=== PATIENT | male | born 1980 | race Caucasian/White ===

== ENCOUNTER 2019-07-24 19:47 | Emergency (ER) | payer SELFPAY ==
[2019-07-24 19:53] VITALS: BP 129/86; PULSE 93; TEMP 98.3; BMI 28.4
--- NOTE | 2019-07-24 21:27 | PDOC ---
History of Present Illness - General Chief Complaint: Alcohol intoxication Stated Complaint: DETOX Time Seen by Provider: 07/24/19 21:07 History Source: Patient Exam Limitations: No Limitations - History of Present Illness Initial Comments: 07/24/19 21:22 38 yo male pmh of testicular CA s/p resection 4 years ago and alcohol abuse presents to the ED for alcohol detox. Pt states his last drink was last night, has drank 30 beers every day for the last 2 years but only 8 today and began having tremors, anxiety and abdominal pain (CIWA 13). Pt requests transfer to detox, never been to detox in the past. Denies CP, SOB, CONCEPCION, F/C/N/V, no other medical complaints Past History - Past Medical History Allergies/Adverse Reactions: Allergies Allergy/AdvReac Type Severity Reaction Status Date / Time No Known Allergies Allergy Verified 07/24/19 19:53 - Psycho Social/Smoking Cessation Hx Smoking History: Current every day smoker Have you smoked in the past 12 months: Yes Number of Cigarettes Smoked Daily: 10 Information on smoking cessation initiated: No Hx Alcohol Use: Yes Drug/Substance Use Hx: Yes (cocaine) Review of Systems - Review of Systems Constitutional: No: Chills, Fever HEENTM: No: Eye Pain, Double Vision Respiratory: No: Shortness of Breath Cardiac (ROS): No: Chest Pain, Edema ABD/GI: Yes: Other (abdominal pain). No: Constipated, Diarrhea, Nausea, Vomiting : No: Dysuria, Discharge, Frequency, Flank Pain Integumentary: No: Bruising Neurological: No: Headache, Numbness, Paresthesia, Weakness, Unsteady Gait, Ataxia, Dizziness *Physical Exam - Vital Signs Last Vital Signs Temp Pulse Resp BP Pulse Ox 98.3 F 93 H 20 129/86 96 07/24/19 19:48 07/24/19 19:48 07/24/19 19:48 07/24/19 19:48 07/24/19 19:48 - Physical Exam General Appearance: Yes: Nourished, Appropriately Dressed. No: Apparent Distress HEENT: positive: EOMI, TIBURCIO Neck: positive: Supple. negative: Carotid bruit Respiratory/Chest: positive: Lungs Clear, Normal Breath Sounds. negative: Respiratory Distress, Accessory Muscle Use, Crackles, Rales, Rhonchi, Stridor, Wheezing Cardiovascular: positive: Regular Rhythm, Regular Rate, S1, S2. negative: Edema , JVD, Murmur Vascular Pulses: Dorsalis-Pedis (R): 4+, Doralis-Pedis (L): 4+ Gastrointestinal/Abdominal: positive: Flat, Soft. 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 negative: Sensory Deficit, Confused, Disoriented ED Treatment Course - LABORATORY CBC & Chemistry Diagram: 07/24/19 21:52 07/24/19 21:52 Medical Decision Making - Medical Decision Making 07/24/19 21:25 38 yo male pmh of testicular CA s/p resection 4 years ago and alcohol abuse presents to the ED for alcohol detox. Pt states his last drink was last night, has drank 30 beers every day for the last 2 years but only 8 today and began having tremors, anxiety and abdominal pain (CIWA 13). Pt requests transfer to detox, never been to detox in the past. Denies CP, SOB, CONCEPCION, F/C/N/V, no other medical complaints vitals wnl Will do basic labs and alcohol then transfer to [facility] for detox pt accepted to [facility] for Detox by Dr. Cisneros Pt will be transported to Detox via security Discharge - Discharge Information Problems reviewed: Yes Clinical Impression/Diagnosis: Alcohol withdrawal Condition: Stable Disposition: TRANSFER ACUTE CARE/OTHER HOSP - Admission No - Follow up/Referral - Patient Discharge Instructions Patient Printed Discharge Instructions: DI for Alcohol Abuse, DI for Drug or Alcohol Withdrawal Additional Instructions: Go straight to [facility] for detox. Thank you - Post Discharge Activity
[2019-07-24 21:59] LABS: BASO % 1.8 % (0-2.0); EOS % 3.1 % (0-4.5); HEMATOCRIT 41.4 % (35.4-49); HEMOGLOBIN 14.2 GM/dL (11.7-16.9); LYMPH % 29.8 % (8-40); MCHC 34.3 g/dl (32.0-35.9); MEAN CELL VOLUME 96.1 fl (80-96); MEAN PLT VOLUME 7.4 fl (7.5-11.1); NEUT % 57.3 % (42.8-82.8); PLATELET COUNT 229 K/MM3 (134-434); RBC 4.31 M/mm3 (4.00-5.60); RDW 12.7 % (11.9-15.9); WHITE BLOOD COUNT 5.9 K/mm3 (4.0-10.0)
--- NOTE | 2019-07-24 22:04 | PDOC ---
Attending Attestation - Resident Resident Name: Vasiliy Page - ED Attending Attestation I have performed the following: I have examined & evaluated the patient, The case was reviewed & discussed with the resident, I agree w/resident's findings & plan - HPI HPI: 07/24/19 21:59 Pt comes for alcohol detox. His family and friends brought him to the ER. Pt states that he was on a page and has had little else to eat for the past couple days. He has never been to this ER in the past. He otherwise is A+Ox3 and pleasant. - Physicial Exam PE: 07/24/19 22:04 Abd diffuse minimal tenderness with deep palpation. Afebrile clear lungs; [id number]; normal heart - Medical Decision Making 07/24/19 22:07 Pt has had basic labs and alcohol level drawn. He is sleeping comfortably. Pt was accepted to [facility] by Dr. Field and he will be sent over with security guards. 07/25/19 00:36 Labs normal; alcohol level 123
[2019-07-24 22:30] LABS: ALBUMIN 3.6 g/dl (3.4-5.0); BILIRUBIN,TOTAL 0.2 mg/dL (0.2-1); BLOOD UREA NITROGEN 6.2 mg/dL (7-18); CALCIUM 8.7 mg/dL (8.5-10.1); CREATININE 0.9 mg/dL (0.55-1.3); POTASSIUM 3.9 mmol/L (3.5-5.1); TOT PROT 6.7 g/dl (6.4-8.2)
== END 2019-07-24 22:34 | disposition short-term general hospital (02) ==
LOC: JER 19:47
DX: F10.230 Alcohol dependence with withdrawal, uncomplicated (principal); F17.210 Nicotine dependence, cigarettes, uncomplicated; Y90.6 Blood alcohol level of 120-199 mg/100 ml
CPT/HCPCS: 36415; 80053; 80307; 85025; 99283-25

== ENCOUNTER 2019-07-24 22:57 | Inpatient (IN) | payer SELFPAY ==
[2019-07-24 23:17] VITALS: BMI 29.6
--- NOTE | 2019-07-24 23:40 | HP ---
CIWA Score Nausea/Vomitin Muscle Tremors: 4-Moderate,w/Arms Extend Anxiety: 3 Agitation: 2 Paroxysmal Sweats: 2 Orientation: 0-Oriented Tacttile Disturbances: 2-Mild Itch/Numbness/Burn Auditory Disturbances: 2-Mild Harshness/Frighten Visual Disturbances: 2-Mild Sensitivity Headache: 2-Mild CIWA-Ar Total Score: 22 - Admission Criteria OASAS Guidelines: Admission for Medically Managed Detox: Requires at least one of the followin. CIWA greater than 12 2. Seizures within the past 24 hours 3. Delirium tremens within the past 24 hours 4. Hallucinations within the past 24 hours 5. Acute intervention needed for co occurring medical disorder 6. Acute intervention needed for co occurring psychiatric disorder 7. Severe withdrawal that cannot be handled at a lower level of care (continued vomiting, continued diarrhea, abnormal vital signs) requiring intravenous medication and/or fluids 8. Admitting History and Physical - Smoking History Smoking history: Current every day smoker Have you smoked in the past 12 months: Yes Aproximately how many cigarettes per day: 10 - Alcohol/Substance Use Hx Alcohol Use: Yes Admission ROS S - HPI Chief Complaint: DEPENDENT ON ETOH ONLY HE WAS SENT FROM THE ER FOR ADMISSION TO THE DETOX UNIT Allergies/Adverse Reactions: Allergies Allergy/AdvReac Type Severity Reaction Status Date / Time No Known Allergies Allergy Verified 07/24/19 23:06 History of Present Illness: THE PT. IS REQUESTING ADMISSION TO THE DETOX UNIT AND CAME FOR MEDICAL CLEARANCE. Exam Limitations: No Limitations - Ebola screening Have you traveled outside of the country in the last 21 days: No (N) Have you had contact with anyone from an Ebola affected area: No Have you been sick,other than usual withdrawal symptoms: No Do you have a fever: No - Review of Systems Constitutional: See HPI, Malaise, Weakness EENT: reports: See HPI Respiratory: reports: See HPI Cardiac: reports: See HPI GI: reports: See HPI, Nausea, Vomiting, Abdominal cramping : reports: No Symptoms Reported, See HPI Musculoskeletal: reports: See HPI, Muscle Pain, Muscle Weakness Integumentary: reports: See HPI, Flushing, Sweating Neuro: reports: See HPI, Headache, Tremors, Weakness Endocrine: reports: See HPI Hematology: reports: See HPI Psychiatric: reports: Judgement Intact, Orientated x3, Anxious, Depressed Patient History - Patient Medical History Hx Seizures: No Hx Human Immunodeficiency Virus (HIV): No Hx Hepatitis C: No Hx Depression: Yes (and ANXIETY DISORDER) Hx Suicide Attempt: No Hx Bipolar Disorder: No Hx Schizophrenia: No - Patient Surgical History Past Surgical History: Yes Other Surgical History: SURGERY FOR CA. OF THE STOMACH AND COLON IN 2015 - Smoking Cessation Smoking history: Current every day smoker Have you smoked in the past 12 months: Yes Aproximately how many cigarettes per day: 10 Hx Chewing Tobacco Use: No Initiated information on smoking cessation: Yes 'Breaking Loose' booklet given: 07/24/19 - Substance & Tx. History Hx Alcohol Use: Yes Hx Substance Use: No Substance Use Type: Alcohol Hx Substance Use Treatment: No - Substances abused Alcohol Substance route: Oral Frequency: Daily Amount used: 30 beers Age of first use: 13 Date of last use: 07/24/19 Admission Physical Exam BHS - Vital Signs Vital Signs: Vital Signs - 24 hr 07/24/19 23:04 Temperature 97.2 F L Pulse Rate 92 H Respiratory 16 Rate Blood Pressure 108/77 - Physical General Appearance: Yes: No Apparent Distress, Nourished, Appropriately Dressed , Alcohol on Breath, Tremorous, Sweating, Anxious HEENTM: Yes: Hearing grossly Normal, Normocephalic, Normal Voice, TIBURCIO, Pharynx Normal Respiratory: Yes: Chest Non-Tender, Lungs Clear, Normal Breath Sounds, No Respiratory Distress, No Accessory Muscle Use Neck: Yes: No masses,lesions,Nodules, Supple, Trachea in good position Breast: Yes: Breast Exam Deferred, Axillae without masses Cardiology: Yes: Regular Rhythm, S1, S2, Tachycardia Abdominal: Yes: Normal Bowel Sounds, Non Tender, Soft, Protuberent Back: Yes: Normal Inspection Musculoskeletal: Yes: full range of Motion, Gait Steady, Pelvis Stable, Muscle Pain, Muscle weakness Extremities: Yes: Normal Capillary Refill, Normal Range of Motion, Non-Tender, Tremors Neurological: Yes: industrial engineering analyst II-XII NML intact, Fully Oriented, Alert, Motor Strength 5/5, Normal Response, Depressed Affect Integumentary: Yes: Normal Color, Warm, Moist, Rash Lymphatic: Yes: Within Normal Limits - Addiitonal Findings: PATCHY AREAS OF ERYTHEMA ON THE ABD. WALL - HAVING FOR ABOUT 2 MONTHS - Diagnostic (1) EtOH dependence Current Visit: Yes Status: Chronic Qualifiers: Complication of substance-induced condition: uncomplicated (2) Nicotine dependence Current Visit: Yes Status: Chronic Qualifiers: Nicotine product type: cigarettes Substance use status: uncomplicated Qualified Code(s): F17.210 - Nicotine dependence, cigarettes, uncomplicated (3) Anxiety and depression Current Visit: Yes Status: Acute (4) Skin rash Current Visit: Yes Status: Chronic Cleared for Admission S - Detox or Rehab [facility] Level of Care: Medically Managed Detox Regimen/Protocol: Valium Breathalyzer - Breathalyzer Breathalyzer: 0.062 Inpatient Rehab Admission - Rehab Decision to Admit Inpatient rehab admission?: No
[2019-07-24] MEDS ORDERED: MELATONIN 5 MG TABLETS PO PRN (23:50)
[2019-07-24] MEDS ORDERED: NICOTINE POLACRILEX 2 MG GUM BUC PRN (23:50)
[2019-07-24] MEDS ORDERED: MAGNESIUM HYDROX 2400MG/30ML ORAL SUSPENSION 30 ML CUP PO PRN (23:50)
[2019-07-24] MEDS ORDERED: hydrOXYzine PAMOATE 25 MG CAPSULE (FP) PO PRN (23:50)
[2019-07-24] MEDS ORDERED: ACETAMINOPHEN 325 MG TABLET (FP) PO PRN ×2 (23:50)
[2019-07-24] MEDS ORDERED: MAG HYDROX/AL HYDROX/SIMETH 30 ML UNIT-DOSE CUP PO PRN (23:50)
[2019-07-24] MEDS ORDERED: BISMUTH SUBSALICYLATE 524 MG/30 ML UD PO PRN (23:50)
[2019-07-24] MEDS ORDERED: MAGNESIUM CITRATE 300 ML BOTTLE PO PRN (23:50)
[2019-07-24] MEDS ORDERED: METHOCARBAMOL 500 MG TABLET PO PRN (23:50)
[2019-07-24] MEDS ORDERED: IBUPROFEN 400 MG TABLET (FP) PO PRN (23:50)
[2019-07-24] MEDS ORDERED: MENTHOL/PHENOL 1 EACH UD MM PRN (23:50)
[2019-07-24] MEDS ORDERED: diazePAM 5 MG TABLET PO ONE (23:50)
[2019-07-25] MEDS: diazePAM 5 MG TABLET PO SCH ×4 (01:38→21:14)
[2019-07-25] MEDS: PRENATAL VITAMINS W/ FOLIC ACID TABLET (FP) PO SCH (10:09)
[2019-07-25] MEDS: NICOTINE 14 MG/24 HOURS TOPICAL PATCH TD SCH (10:09)
[2019-07-25 12:13] LABS: HEMATOCRIT 43.1 % (35.4-49); HEMOGLOBIN 14.7 GM/dL (11.7-16.9); MCH 33.1 pg (25.7-33.7); MCHC 34.2 g/dl (32.0-35.9); MEAN CELL VOLUME 96.9 fl (80-96); MEAN PLT VOLUME 8.3 fl (7.5-11.1); PLATELET COUNT 194 K/MM3 (134-434); RBC 4.45 M/mm3 (4.00-5.60); RDW 12.8 % (11.9-15.9); WHITE BLOOD COUNT 4.6 K/mm3 (4.0-10.0)
[2019-07-25 12:25] LABS: ALBUMIN 3.7 g/dl (3.4-5.0); BILIRUBIN,TOTAL 0.6 mg/dL (0.2-1); BLOOD UREA NITROGEN 6.6 mg/dL (7-18); CALCIUM 8.8 mg/dL (8.5-10.1); CREATININE 0.9 mg/dL (0.55-1.3); POTASSIUM 3.9 mmol/L (3.5-5.1); TOT PROT 6.9 g/dl (6.4-8.2)
--- NOTE | 2019-07-25 14:03 | CONSULT ---
[facility] Psychiatric Consult - Data Date of interview: 07/25/19 Admission source: [facility] Identifying data: Patient is a 38 year old [place] male, father of two, unemployed, domiciled (resides with sister), and supports himself with his savings. This is patient's first admission to detox at [facility]. Patient admitted to for alcohol dependence. Substance Abuse History: - Smoking Cessation. Smoking history: Current every day smoker. Have you smoked in the past 12 months: Yes. Aproximately how many cigarettes per day: 10. Hx Chewing Tobacco Use: No. Initiated information on smoking cessation: Yes. 'Breaking Loose' booklet given: 07/24/19. - Substance & Tx. History. Hx Alcohol Use: Yes. Hx Substance Use: No. Substance Use Type : Alcohol. Hx Substance Use Treatment: No. - Substances abused. Alcohol. Substance route: Oral. Frequency: Daily. Amount used: 30 beers. Age of first use: 13. Date of last use: 07/24/19 Medical History: Surgery for cancer of the stomach and coloin in 2014. Psychiatric History: Patient's first psychiatric contact was while in rehab at [facility]. He reports being diagnosed with depression and anxiety and was treated with Celexa. After discharge he continued psychiatric treatment at a clinic in [address] [place] [address]. Mr. Sepulveda most recently received psychiatric care by Dr. Anderson in the area of [facility] in 2018. States that he continued to receive treatment with celexa 20mg which improved his mood and anxiety. Subsequently his treatment was discontinued after his removed him from the insurance which then caused him to relapse. At present patient reports feeling sad and anxious. Patient denies history of psychiatric hospitalization and suicide attempt. Physical/Sexual Abuse/Trauma History: denies. Mental Status Exam - Mental Status Exam Alert and Oriented to: Time, Place, Person Cognitive Function: Good Patient Appearance: Well Groomed Mood: Sad Affect: Mood Congruent Patient Behavior: Appropriate, Cooperative Speech Pattern: Appropriate Voice Loudness: Normal Thought Process: Goal Oriented Thought Disorder: Not Present Hallucinations: Denies Suicidal Ideation: Denies Homicidal Ideation: Denies Insight/Judgement: Poor Sleep: Poorly Appetite: Fair Muscle strength/Tone: Normal Gait/Station: Normal Psychiatric Findings - Problem List ([place] 1, 2,3) (1) Nicotine dependence Current Visit: Yes Status: Chronic Qualifiers: Nicotine product type: cigarettes Substance use status: uncomplicated Qualified Code(s): F17.210 - Nicotine dependence, cigarettes, uncomplicated (2) Alcohol withdrawal Current Visit: Yes Status: Acute (3) Alcohol-induced mood disorder Current Visit: Yes Status: Acute (4) Alcohol induced sleep disorders Current Visit: Yes Status: Acute - Initial Treatment Plan Initial Treatment Plan: Psychoeducation provided. Detoxification in progress. Will order Celexa 10mg + Belsomra 10mg HS. Benefits and side effects discussed. Verbal consent given.
--- NOTE | 2019-07-25 15:30 | PN ---
S CIWA - CIWA Score Nausea/Vomitin-Mild Nausea/No Vomiting Muscle Tremors: 4-Moderate,w/Arms Extend Anxiety: 3 Agitation: 3 Paroxysmal Sweats: 3 Orientation: 0-Oriented Tacttile Disturbances: 0-None Auditory Disturbances: 0-None Visual Disturbances: 0-None Headache: 0-None Present CIWA-Ar Total Score: 14 S Progress Note (SOAP) Subjective: Tremor, feels sick from withdrawing sxs, interrupted sleep Objective: 07/25/19 15:29 Last Vital Signs Temp Pulse Resp BP Pulse Ox 98.1 F 81 18 126/78 07/25/19 13:39 07/25/19 13:39 07/25/19 13:39 07/25/19 13:39 Laboratory Tests 07/25/19 07/25/19 07/25/19 07:35 07:35 07:35 WBC 4.6 RBC 4.45 Hgb 14.7 Hct 43.1 MCV 96.9 H MCH 33.1 MCHC 34.2 RDW 12.8 Plt Count 194 MPV 8.3 D Sodium 139 Potassium 3.9 Chloride 105 Carbon Dioxide 30 Anion Gap 4 L BUN 6.6 L Creatinine 0.9 Est GFR (CKD-EPI)AfAm 124.26 Est GFR (CKD-EPI)NonAf 107.21 Random Glucose 85 Calcium 8.8 Total Bilirubin 0.6 AST 28 ALT 35 Alkaline Phosphatase 102 Total Protein 6.9 Albumin 3.7 RPR Titer Nonreactive Labs reviewed Assessment: 07/25/19 15:29 Withdrawal sxs Plan: Continue detox Encouraged PO water intake
[2019-07-25] MEDS: THIAMINE HCL 100 MG TABLET (FP) PO SCH (21:15)
[2019-07-25] MEDS: SUVOREXANT 10 MG TABLET PO PRN (21:16)
[2019-07-26] MEDS: diazePAM 5 MG TABLET PO SCH ×2 (05:50→17:41)
--- NOTE | 2019-07-26 09:58 | PN ---
S CIWA - CIWA Score Nausea/Vomitin-No Nausea/No Vomiting Muscle Tremors: 2 Anxiety: 2 Agitation: 2 Paroxysmal Sweats: 2 Orientation: 0-Oriented Tacttile Disturbances: 0-None Auditory Disturbances: 0-None Visual Disturbances: 0-None Headache: 0-None Present CIWA-Ar Total Score: 8 BHS Progress Note (SOAP) Subjective: sweats feeling better Objective: 07/26/19 09:55 Vital Signs Temperature 98.2 F 07/26/19 09:17 Pulse Rate 70 07/26/19 09:17 Respiratory Rate 18 07/26/19 09:17 Blood Pressure 123/67 07/26/19 09:17 O2 Sat by Pulse Oximetry (%) Laboratory Tests 07/25/19 07/25/19 07/25/19 07:35 07:35 07:35 WBC 4.6 RBC 4.45 Hgb 14.7 Hct 43.1 MCV 96.9 H MCH 33.1 MCHC 34.2 RDW 12.8 Plt Count 194 MPV 8.3 D Sodium 139 Potassium 3.9 Chloride 105 Carbon Dioxide 30 Anion Gap 4 L BUN 6.6 L Creatinine 0.9 Est GFR (CKD-EPI)AfAm 124.26 Est GFR (CKD-EPI)NonAf 107.21 Random Glucose 85 Calcium 8.8 Total Bilirubin 0.6 AST 28 ALT 35 Alkaline Phosphatase 102 Total Protein 6.9 Albumin 3.7 RPR Titer Nonreactive aaox3 ambulating no acute distress Assessment: 07/26/19 09:57 mild withdrawals Plan: continue detox d/c in am
[2019-07-26] MEDS: NICOTINE 14 MG/24 HOURS TOPICAL PATCH TD SCH (10:03)
[2019-07-26] MEDS: PRENATAL VITAMINS W/ FOLIC ACID TABLET (FP) PO SCH (10:03)
[2019-07-26] MEDS: CITALOPRAM HYDROBROMIDE 10 MG TABLET (FP) PO SCH (10:04)
[2019-07-26] MEDS: diazePAM 5 MG TABLET PO PRN ×3 (10:06→20:14)
--- NOTE | 2019-07-26 16:01 | EKG ---
Test Reason : Blood Pressure : / mmHG Vent. Rate : 069 BPM Atrial Rate : 069 BPM P-R Int : 146 ms QRS Dur : 092 ms QT Int : 410 ms P-R-T Axes : 042 076 051 degrees QTc Int : 439 ms NORMAL SINUS RHYTHM NORMAL ECG NO PREVIOUS ECGS AVAILABLE Confirmed by KEKE RANDLE MD ([id number]) on 07/26/2019 4:01:19 PM Referred By: Confirmed By:KEKE RANDLE MD
[2019-07-26] MEDS: THIAMINE HCL 100 MG TABLET (FP) PO SCH (22:03)
[2019-07-26] MEDS: SUVOREXANT 10 MG TABLET PO PRN (22:04)
[2019-07-27] MEDS ORDERED: diazePAM 5 MG TABLET PO ONE (06:00)
--- NOTE | 2019-07-27 09:14 | DS ---
[facility] Detox Discharge Summary Admission Date: 07/24/19 Discharge Date: 07/27/19 - History Present History: Alcohol Dependence - Physical Exam Results Vital Signs: Vital Signs Temperature 97.2 F L 07/27/19 05:45 Pulse Rate 84 07/27/19 05:45 Respiratory Rate 18 07/27/19 05:45 Blood Pressure 133/82 07/27/19 05:45 O2 Sat by Pulse Oximetry (%) Pertinent Admission Physical Exam Findings: pt arrived in withdrawals Vital Signs Temperature 97.2 F L 07/27/19 05:45 Pulse Rate 84 07/27/19 05:45 Respiratory Rate 18 07/27/19 05:45 Blood Pressure 133/82 07/27/19 05:45 O2 Sat by Pulse Oximetry (%) Laboratory Tests 07/25/19 07/25/19 07/25/19 07:35 07:35 07:35 WBC 4.6 RBC 4.45 Hgb 14.7 Hct 43.1 MCV 96.9 H MCH 33.1 MCHC 34.2 RDW 12.8 Plt Count 194 MPV 8.3 D Sodium 139 Potassium 3.9 Chloride 105 Carbon Dioxide 30 Anion Gap 4 L BUN 6.6 L Creatinine 0.9 Est GFR (CKD-EPI)AfAm 124.26 Est GFR (CKD-EPI)NonAf 107.21 Random Glucose 85 Calcium 8.8 Total Bilirubin 0.6 AST 28 ALT 35 Alkaline Phosphatase 102 Total Protein 6.9 Albumin 3.7 RPR Titer Nonreactive pt is aaox3 ambulating no acute distress - Treatment Hospital Course: Detox Protocol Followed, Detoxed Safely, Responded well, Discharged Condition Good, Rehab Referral Accepted Patient has Accepted a Rehab Referral to: pt referred to [place] counseling - Medication Discharge Medications: Ambulatory Orders NK [No Known Home Medication] 07/24/19 - Diagnosis (1) Alcohol induced sleep disorders Current Visit: Yes Status: Acute (2) Alcohol-induced mood disorder Current Visit: Yes Status: Acute (3) Anxiety and depression Current Visit: Yes Status: Acute (4) EtOH dependence Current Visit: Yes Status: Chronic Qualifiers: Substance use status: in withdrawal Complication of substance-induced condition: uncomplicated Qualified Code(s): F10.230 - Alcohol dependence with withdrawal, uncomplicated (5) Nicotine dependence Current Visit: Yes Status: Chronic Qualifiers: Nicotine product type: cigarettes Substance use status: uncomplicated Qualified Code(s): F17.210 - Nicotine dependence, cigarettes, uncomplicated (6) Skin rash Current Visit: Yes Status: Chronic - AMA Did Patient Leave Against Medical Advice: No
[2019-07-27 09:21] VITALS: BP 131/85; PULSE 65; TEMP 97.1
[2019-07-27] MEDS: CITALOPRAM HYDROBROMIDE 10 MG TABLET (FP) PO SCH (09:37)
[2019-07-27] MEDS: PRENATAL VITAMINS W/ FOLIC ACID TABLET (FP) PO SCH (09:37)
[2019-07-27] MEDS: NICOTINE 14 MG/24 HOURS TOPICAL PATCH TD SCH (09:38)
== END 2019-07-27 09:46 | disposition home or self-care (01) | DRG 775 ==
LOC: YASAS 22:57 → Y6N 23:43
PROVIDERS: ADMIT Allergy & Immunology; ATTEND Allergy & Immunology
PROC: HZ2ZZZZ Detoxification Services for Substance Abuse Treatment (ICD-10-PCS; principal; 2019-07-24)
DX: F10.230 Alcohol dependence with withdrawal, uncomplicated (principal); F17.210 Nicotine dependence, cigarettes, uncomplicated; F10.282 Alcohol dependence with alcohol-induced sleep disorder; F10.24 Alcohol dependence with alcohol-induced mood disorder; F41.8 Other specified anxiety disorders; F32.9 Major depressive disorder, single episode, unspecified; R21 Rash and other nonspecific skin eruption; Z85.038 Personal history of other malignant neoplasm of large intestine; Z85.028 Personal history of other malignant neoplasm of stomach
CPT/HCPCS: 36415; 80053; 85027; 86593; 93005; 93010